=== PATIENT | male | born 1985 | race Caucasian/White ===

== ENCOUNTER 2016-07-24 09:00 | Emergency (ER) | payer OTHER ==
[2016-07-24 09:06] VITALS: BP 144/70; PULSE 58; TEMP 98; BMI 33.3
[2016-07-24] MEDS ORDERED: DIPHTH,PERTUSS(ACELL),TET 0.5 ML DISP.SYRIN IM ONE (10:19)
[2016-07-24] MEDS ORDERED: ACETAMINOPHEN 325 MG TABLET (FP) PO ONE (10:21)
--- NOTE | 2016-07-24 10:21 | PDOC ---
History of Present Illness - General Chief Complaint: Injury Stated Complaint: RT EYE INJURY Time Seen by Provider: 07/24/16 09:39 History Source: Patient, Friend Exam Limitations: No Limitations - History of Present Illness Initial Comments: 07/24/16 10:32 31 yr male at work today was using a [place] bar to remove a piece of wood when the [place] bar slipped hitting pt in the right eye . Pt was wearing protective goggles. no LOC, pt did not fall. Pt denies visual changes. no medical history or allergies. Occurred: reports: just prior to arrival Severity: reports: mild Pain Location: reports: face Method of Injury: Yes: direct blow Past History - Past Medical History Allergies/Adverse Reactions: Allergies Allergy/AdvReac Type Severity Reaction Status Date / Time No Known Allergies Allergy Verified 07/24/16 09:06 Home Medications: Ambulatory Orders NK [No Known Home Medication] 07/24/16 - Psycho/Social/Smoking Cessation Hx Suicidal Ideation: No Smoking History: Never smoked Information on smoking cessation initiated: No Review of Systems - Review of Systems Able to Perform ROS?: Yes Is the patient limited Japanese proficient: Yes Constitutional: No: Symptoms Reported HEENTM: Yes: See HPI. No: Symptoms Reported Respiratory: No: Symptoms reported Cardiac (ROS): No: Symptoms Reported ABD/GI: No: Symptoms Reported : No: Symptoms Reported Integumentary: Yes: Symptoms Reported, See HPI *Physical Exam - Vital Signs Last Vital Signs Temp Pulse Resp BP Pulse Ox 98 F 58 L 18 144/70 100 07/24/16 09:03 07/24/16 09:03 07/24/16 09:03 07/24/16 09:03 07/24/16 09:03 - Physical Exam General Appearance: Yes: Nourished, Appropriately Dressed HEENT: positive: EOMI, NOHEMI, Other (right eye with conjunctival erythema, abrasion to the outer area of cheek, mild swelling to the periorbital area, EOMI without pain, CARTER intact ) Neck: negative: Tender Respiratory/Chest: positive: Lungs Clear, Normal Breath Sounds Cardiovascular: positive: Regular Rhythm, Regular Rate Integumentary: positive: Normal Color, Dry, Bruising (periorbiatl area mild brusing above eyebrow neg orbital bony tendnerness ) Procedures - Eye Procedure Alcaine Drops Administered: Yes (2 drops right eye ) Eye Irrigated w/ Saline(Drew Lens): No Antibiotic Oinment/Drps Admin: right eye (erythromycin) Progress: 07/24/16 10:36 neg uptake neg abrasion with fluoroscein seen , neg hyphema - Laceration/Wound Repair Right Face Wound Length: to 2.5 cm Wound Explored: clean Wound's Depth, Shape: superficial, linear (right outer aspect of eyebrow) Irrigated w/ Saline: Yes Wound Repaired With: Dermabond Sterile Dressing Applied: Yes Progress: 07/24/16 10:38 wound cleaned dermabond placed edges well approximated Medical Decision Making - Medical Decision Making 07/24/16 10:35 cc: trauma to right side face/cheek eye no LOC no vision changes Snellen chart left eye 20/25 right eye 20/40 without correction no visual disturbances neg corneal abrasion will update tetanus dermabond laceration to the outer eyebrow tylenol for pain erythromyucin eye ointment strict follow up with optho *DC/Admit/Observation/Transfer Diagnosis at time of Disposition: Laceration Eye injury Qualifiers: Encounter type: initial encounter Laterality: right Qualified Code(s): S05.91XA - Unspecified injury of right eye and orbit, initial encounter - Discharge Dispostion Disposition: HOME Condition at time of disposition: Good - Referrals Referrals: Cisco Lester [Staff Physician] - - Patient Instructions Additional Instructions: apply ice every 2hrs for 20 minutes to area of swelling take motrin for any pain 600mg every 6hrs as needed follow with the eye doctor tomorrow at 1015am , if you can not make that appointment call today to cancel at [phone] do not put any creams or lotions over the glue, the glue will peel off on its own in about one week Return to ER for any worsening pain or changes in condition apply the eye ointment three times a day to lower lid Aplicar hielo cada 2 horas юлия 20 minutos a la lamberto de hinchazn Ulises motrin para cualquier dolor 600mg cada 6 horas segn sea necesario Siga con el oftalmlogo maana a las 10h15, si no puede hacer karis gerardo hoy para cancelar al [phone] No ponga ninguna cremas o lociones sobre el pegamento, el pegamento descascar apagado en max el propios cerca de gordon semana Vuelva al ER para cualquier empeoramiento del dolor o cambios en la condicin Aplique el ungento para bajar la tapa deedee veces al da - Post Discharge Activity Work/School Note: Back to Work
[2016-07-24] MEDS ORDERED: ACETAMINOPHEN 325 MG TABLET (FP) ONE (10:26)
[2016-07-24] MEDS ORDERED: ERYTHROMYCIN 0.5% OPHTHALMIC OINTMENT 3.5 GM TUBE OD ONE (10:31)
[2016-07-24] MEDS ORDERED: ERYTHROMYCIN 0.5% OPHTHALMIC OINTMENT 3.5 GM TUBE ONE (10:34)
== END 2016-07-24 11:35 | disposition home or self-care (01) ==
LOC: JERFT 09:00
PROC: 0HQ1XZZ Repair Face Skin, External Approach (ICD-10-PCS; principal; 2016-07-24)
PROC: 3E0234Z Introduction of Serum, Toxoid and Vaccine into Muscle, Percutaneous Approach (ICD-10-PCS; 2016-07-24)
DX: S05.91XA Unspecified injury of right eye and orbit, initial encounter (principal); S01.111A Laceration without foreign body of right eyelid and periocular area, initial encounter; W20.8XXA Other cause of strike by thrown, projected or falling object, initial encounter; Y93.89 Activity, other specified; Y92.9 Unspecified place or not applicable; Y99.0 Civilian activity done for income or pay
CPT/HCPCS: 90715; 99281-25